=== PATIENT | female | born 1960 | race Two or more races ===

== ENCOUNTER 2020-02-23 13:42 | Emergency (ER) | payer OTHER ==
[~2020-02-23] VITALS: Ht 172.7 cm; Wt 54.4 kg
[2020-02-23 13:47] VITALS: BP 134/77
== END 2020-02-23 15:54 | disposition home or self-care (01) ==
LOC: ER 14:01
DX: M77.31 Calcaneal spur, right foot (principal)
CPT/HCPCS: 73630-TC